=== PATIENT | male | born 1975 | race Caucasian/White ===

== ENCOUNTER → 2018-04-12 | Outpatient (CLI) | payer BC | END | disposition home or self-care (01) | LOC: PTMAIN 08:38 | PROVIDERS: ATTEND Otolaryngology | DX: K21.9 Gastro-esophageal reflux disease without esophagitis (principal); Z53.9 Procedure and treatment not carried out, unspecified reason ==

== ENCOUNTER → 2019-11-25 | Outpatient (CLI) | payer BC ==
--- NOTE | 2019-11-25 12:00 | EST ---
EXERCISE STRESS DATE OF SERVICE: 11/25/2019 AGE: 44 SEX: M HT: 75" WT: 230 lbs PROTOCOL: Stress Echo. STAGE: 3 DURATION OF EXERCISE: 8 minutes HEART RATE REST: 87 BLOOD PRESSURE REST: 129/61 MAXIMUM HEART RATE ACHIEVED: 154 MAXIMUM BLOOD PRESSURE: 204/85 85% MPHR: 149 100% MPHR: 175 METS: 9.7 INDICATIONS: Chest pain. CLINICAL INFORMATION: Evaluate for CAD in a patient with diabetes and hypertension. RESULTS: Baseline EKG revealed normal sinus rhythm without significant ST changes. Patient walked for 8 minutes on a standard Killian protocol. Achieved a maximal heart rate of 154 beats per minute which is more than 85% of predicted maximal. He developed fatigue and shortness of breath but did not have any angina or any arrhythmia. EKG did not reveal any ST-segment changes to indicate ischemia. By EKG criteria, this is a negative stress test with fair exercise capacity. There was no arrhythmia or angina. Baseline echo images revealed normal wall motion and wall thickening of all segments. An echo contrast was used to optimize the image quality. At peak exercise with Lumason injection, the images were optimized. There was good augmentation of left and wall motion wall thickening of all segments suggesting that there is no evidence of stress-induced ischemia on this study. FINAL IMPRESSION: 1. By EKG criteria, this is a negative stress test with fair exercise capacity. 2. Normal stress echocardiogram without evidence of ischemia. MMODL / IJN: [id number] /
== END | disposition home or self-care (01) ==
LOC: RADNMMAIN 08:52
PROVIDERS: ATTEND Nurse Practitioner Family
DX: R07.9 Chest pain, unspecified (principal)
CPT/HCPCS: 93351; Q9950

== ENCOUNTER → 2019-12-12 | Outpatient (CLI) | payer BC ==
--- NOTE | 2019-12-13 14:48 | US ---
EXAMINATION TYPE: US scrotum with doppler. Grayscale and color Doppler Duplex imaging performed of t he scrotum. DATE OF EXAM: 12/12/2019 COMPARISON: NONE CLINICAL HISTORY: N50.819 Testicular pain. Left testicular swelling EXAM MEASUREMENTS: TESTICLES: Right Testicle: 3.9 x 2.3 x 2.8 cm Left Testicle: 3.8 x 2.2 x 2.6 cm EPIDIDYMIS HEAD: Right Epididymis: 1.1 x 1.1 x 1.4 cm Left Epididymis: 1.4 x 1.2 x 1.4 cm Doppler performed to assess for testicular vascularity; good bilateral color flow and waveforms are s een. There is no evidence of testicular torsion. Presence of hydroceles: no Presence of varicoceles: prominent vessel on left side that increased with valsalva IMPRESSION: 1. Normal testicular ultrasound 2. Left-sided varicoceles.
== END | disposition home or self-care (01) ==
LOC: RADUSMAIN 17:34
PROVIDERS: ATTEND Student in an Organized Health Care Education/Training Program
DX: I86.1 Scrotal varices (principal)
CPT/HCPCS: 76870; 93975

== ENCOUNTER 2020-01-08 09:35 | Emergency (ER) | payer BC ==
[2020-01-08 09:40] VITALS: RESP 18; TEMP 98.2
[2020-01-08] MEDS ORDERED: FAMOTIDINE 20 MG/2 ML VIAL IV STA (09:54)
[2020-01-08] MEDS ORDERED: ONDANSETRON 4 MG/2 ML VIAL IVP STA (09:54)
--- NOTE | 2020-01-08 10:04 | ED ---
General Adult HPI - General Chief complaint: Nausea/Vomiting/Diarrhea Stated complaint: Vomiting Time Seen by Provider: 01/08/20 09:46 Source: patient, RN notes reviewed Mode of arrival: ambulatory Limitations: no limitations - History of Present Illness Initial comments: Patient is a pleasant 44-year-old male presenting to the emergency department with nausea and vomiting. Onset of symptoms was last night. Patient estimates that he vomited over 8 times. Patient still has some nausea. This morning patient did develop some tingling on the right side of his chest. Patient states it is mild and is near resolved at this time. No history of similar symptoms previously. Patient states there may be some mild associated shortness of breath. No diaphoresis. - Related Data Home Medications Medication Instructions Recorded Confirmed Glimepiride [Amaryl] 2 mg PO AC-BID 01/08/20 01/08/20 Lisinopril [Zestril] 20 mg PO DAILY 01/08/20 01/08/20 Pioglitazone [Actos] 30 mg PO DAILY 01/08/20 01/08/20 chlordiazePOXIDE/CLIDINIUM BR 1 cap PO AC-TID 01/08/20 01/08/20 [Librax] metFORMIN HCL 1,000 mg PO AC-BID 01/08/20 01/08/20 Allergies Allergy/AdvReac Type Severity Reaction Status Date / Time No Known Allergies Allergy Verified 01/08/20 09:37 Review of Systems ROS Statement: Those systems with pertinent positive or pertinent negative responses have been documented in the HPI. ROS Other: All systems not noted in ROS Statement are negative. Constitutional: Denies: fever Eyes: Denies: eye pain ENT: Denies: ear pain Respiratory: Reports: as per HPI Cardiovascular: Reports: as per HPI, chest pain Endocrine: Denies: fatigue Gastrointestinal: Reports: nausea, vomiting. Denies: diarrhea, constipation Genitourinary: Denies: dysuria Musculoskeletal: Denies: back pain Skin: Denies: rash Neurological: Denies: weakness Past Medical History Past Medical History: Diabetes Mellitus, Hypertension History of Any Multi-Drug Resistant Organisms: None Reported Past Surgical History: Hernia Repair, Orthopedic Surgery Additional Past Surgical History / Comment(s): splenectomy Past Psychological History: Anxiety Smoking Status: Current every day smoker Past Alcohol Use History: Occasional Past Drug Use History: Marijuana General Exam Limitations: no limitations General appearance: alert, in no apparent distress Head exam: Present: normocephalic Eye exam: Present: normal appearance, PERRL ENT exam: Present: normal oropharynx Neck exam: Present: normal inspection Respiratory exam: Present: normal lung sounds bilaterally, chest wall tenderness (Mild tenderness right upper chest wall in the area of concern) Cardiovascular Exam: Present: regular rate, normal rhythm Expanded Peripheral pulses: 2+: Radial (R), Radial (L), Posterior Tibialis (R), Posterior Tibialis (L) GI/Abdominal exam: Present: soft. Absent: distended, tenderness Extremities exam: Present: normal inspection. Absent: pedal edema, calf tende rness Neurological exam: Present: alert Psychiatric exam: Present: normal affect, normal mood Skin exam: Present: normal color Course Vital Signs 01/08/20 09:37 Temperature 98.2 F Pulse Rate 77 Respiratory 18 Rate Blood Pressure 137/93 O2 Sat by Pulse 99 Oximetry EKG Findings - EKG Comments: EKG Findings:: Normal sinus rhythm 75. NV 180. QRS 92. QT 412. QTC 460. Normal axis. Poor R-wave progression. No acute ST change. Medical Decision Making - Medical Decision Making Patient reevaluated and resting comfortably in bed, feeling much better. Patient updated on results. He should and requests discharge home. Patient is made aware of limitations of cardiac testing and emergency department. Patient is felt to have extremely low risk for acute cardiac disease with negative emergency department workup. - Lab Data Result diagrams: 01/08/20 09:50 01/08/20 09:50 Lab Results 01/08/20 01/08/20 01/08/20 Range/Units 09:50 09:50 09:50 WBC 10.8 H (3.8-10.6) k/uL RBC 4.89 (4.30-5.90) m/uL Hgb 16.2 (13.0-17.5) gm/dL Hct 48.6 (39.0-53.0) % MCV 99.4 (80.0-100.0) fL MCH 33.0 (25.0-35.0) pg MCHC 33.3 (31.0-37.0) g/dL RDW 13.4 (11.5-15.5) % Plt Count 249 (150-450) k/uL Neutrophils % 60 % Lymphocytes % 29 % Monocytes % 7 % Eosinophils % 1 % Basophils % 0 % Neutrophils # 6.5 (1.3-7.7) k/uL Lymphocytes # 3.2 (1.0-4.8) k/uL Monocytes # 0.7 (0-1.0) k/uL Eosinophils # 0.2 (0-0.7) k/uL Basophils # 0.0 (0-0.2) k/uL PT 10.1 (9.0-12.0) sec INR 1.0 (<1.2) APTT 25.2 (22.0-30.0) sec D-Dimer (<0.60) mg/L FEU Sodium 137 (137-145) mmol/L Potassium 4.0 (3.5-5.1) mmol/L Chloride 101 (98-107) mmol/L Carbon Dioxide 23 (22-30) mmol/L Anion Gap 13 mmol/L BUN 10 (9-20) mg/dL Creatinine 0.60 L (0.66-1.25) mg/dL Est GFR (CKD-EPI)AfAm >90 (>60 ml/min/1.73 sqM) Est GFR (CKD-EPI)NonAf >90 (>60 ml/min/1.73 sqM) Glucose 126 H (74-99) mg/dL Calcium 10.0 (8.4-10.2) mg/dL Magnesium 1.6 (1.6-2.3) mg/dL Total Bilirubin 0.8 (0.2-1.3) mg/dL AST 83 H (17-59) U/L ALT 75 H (4-49) U/L Alkaline Phosphatase 122 (38-126) U/L Troponin I (0.000-0.034) ng/mL Total Protein 8.1 (6.3-8.2) g/dL Albumin 5.1 H (3.5-5.0) g/dL 01/08/20 01/08/20 Range/Units 09:50 09:50 WBC (3.8-10.6) k/uL RBC (4.30-5.90) m/uL Hgb (13.0-17.5) gm/dL Hct (39.0-53.0) % MCV (80.0-100.0) fL MCH (25.0-35.0) pg MCHC (31.0-37.0) g/dL RDW (11.5-15.5) % Plt Count (150-450) k/uL Neutrophils % % Lymphocytes % % Monocytes % % Eosinophils % % Basophils % % Neutrophils # (1.3-7.7) k/uL Lymphocytes # (1.0-4.8) k/uL Monocytes # (0-1.0) k/uL Eosinophils # (0-0.7) k/uL Basophils # (0-0.2) k/uL PT (9.0-12.0) sec INR (<1.2) APTT (22.0-30.0) sec D-Dimer 0.40 (<0.60) mg/L FEU Sodium (137-145) mmol/L Potassium (3.5-5.1) mmol/L Chloride (98-107) mmol/L Carbon Dioxide (22-30) mmol/L Anion Gap mmol/L BUN (9-20) mg/dL Creatinine (0.66-1.25) mg/dL Est GFR (CKD-EPI)AfAm (>60 ml/min/1.73 sqM) Est GFR (CKD-EPI)NonAf (>60 ml/min/1.73 sqM) Glucose (74-99) mg/dL Calcium (8.4-10.2) mg/dL Magnesium (1.6-2.3) mg/dL Total Bilirubin (0.2-1.3) mg/dL AST (17-59) U/L ALT (4-49) U/L Alkaline Phosphatase (38-126) U/L Troponin I <0.012 (0.000-0.034) ng/mL Total Protein (6.3-8.2) g/dL Albumin (3.5-5.0) g/dL Disposition Clinical Impression: Vomiting Disposition: HOME SELF-CARE Condition: Stable Instructions (If sedation given, give patient instructions): Chest Pain (ED), Acute Nausea and Vomiting (ED) Additional Instructions: Please follow-up to primary care physician in the next day or 2 for recheck. Please also follow-up. Surgeon as directed. Have primary care physician recheck liver enzymes. Return for fever, abdominal pain, chest pain, worsening or changing symptoms or other concerns. Is patient prescribed a controlled substance at d/c from ED?: No Referrals: Terence Knott MD [Primary Care Provider] - 1-2 days Time of Disposition: 11:41
[2020-01-08 10:17] LABS: Basophils % (A) 0 %; Eosinophils # (A) 0.2 k/uL (0-0.7); Eosinophils % (A) 1 %; HCT 48.6 % (39.0-53.0); HGB 16.2 gm/dL (13.0-17.5); Lymphocytes # (A) 3.2 k/uL (1.0-4.8); Lymphocytes % (A) 29 %; MCHC 33.3 g/dL (31.0-37.0); MCV 99.4 fL (80.0-100.0); Mean Platelet Volume 10.5; Monocytes # (A) 0.7 k/uL (0-1.0); Monocytes % (A) 7 %; Neutrophils # (A) 6.5 k/uL (1.3-7.7); Neutrophils % (A) 60 %; Platelet Count 249 k/uL (150-450); RBC 4.89 m/uL (4.30-5.90); RDW 13.4 % (11.5-15.5); WBC 10.8 k/uL (3.8-10.6)
[2020-01-08 10:25] LABS: Partial Thromboplastin Time 25.2 sec (22.0-30.0); Prothrombin Time 10.1 sec (9.0-12.0)
--- NOTE | 2020-01-08 10:29 | XR ---
EXAMINATION TYPE: XR chest 2V DATE OF EXAM: 01/08/2020 COMPARISON: NONE HISTORY: Right-sided chest pain. TECHNIQUE: Frontal and lateral views of the chest are obtained. FINDINGS: There is some chronic left basilar linear scarring and/or atelectasis without suspicious f ocal air space opacity, pleural effusion, or pneumothorax seen. The cardiac silhouette size is withi n normal limits. Multilevel spurring in the lower thoracic spine is present. Surgical clips epigastri c region are present. Overlying EKG leads are present. IMPRESSION: No acute cardiopulmonary process.
[2020-01-08 10:32] LABS: ALT 75 U/L (4-49); AST 83 U/L (17-59); African American GFR (CKD) >90 (>60 ml/min/1.73 sqM); Albumin 5.1 g/dL (3.5-5.0); Alkaline Phosphatase 122 U/L (38-126); Anion Gap 13 mmol/L; Blood Urea Nitrogen 10 mg/dL (9-20); Carbon Dioxide 23 mmol/L (22-30); Chloride 101 mmol/L (98-107); Glucose 126 mg/dL (74-99); Magnesium 1.6 mg/dL (1.6-2.3); Non-African American GFR(CKD) >90 (>60 ml/min/1.73 sqM); Sodium 137 mmol/L (137-145); Total Bilirubin 0.8 mg/dL (0.2-1.3); Total Protein 8.1 g/dL (6.3-8.2)
[2020-01-08 12:06] VITALS: BP 145/88; PULSE 70
== END 2020-01-08 12:06 | disposition home or self-care (01) ==
LOC: EC 09:35
DX: R11.2 Nausea with vomiting, unspecified (principal); R20.2 Paresthesia of skin; E11.9 Type 2 diabetes mellitus without complications; F41.9 Anxiety disorder, unspecified; I10 Essential (primary) hypertension; F17.200 Nicotine dependence, unspecified, uncomplicated; Z79.84 Long term (current) use of oral hypoglycemic drugs; Z79.899 Other long term (current) drug therapy
CPT/HCPCS: 36415; 93005; 85379; 80053; 83735; 84484; 85025; 85610; 85730; 71046; 99284; 96374; 96375; J2405

== ENCOUNTER → 2020-09-14 | Outpatient (CLI) | payer BC ==
[2020-09-14 13:50] VITALS: BP 161/107; PULSE 104; RESP 16; TEMP 98.2
--- NOTE | 2020-09-14 14:10 | P.PAINCN ---
History of Present Illness - Reason for Consult Consult date: 09/14/20 - History of Present Illness This is initial consultation visit for this 45 years old male with a chronic history of severe neck pain with radiation to the right upper extremity associated with numbness and tingling sensation, up to the fingertips, and he feels some weakness in his right upper extremity, denies any initiating event and the symptoms interfere with his quality of life, and the symptoms started almost a year ago, he denies any fever or night sweats. Denies any change in the bowel movement or urination he never tried any physical therapy, and he report that the neck pain increases with any neck movement Past Medical History Past Medical History: Diabetes Mellitus, Hypertension History of Any Multi-Drug Resistant Organisms: None Reported Past Surgical History: Hernia Repair, Orthopedic Surgery Additional Past Surgical History / Comment(s): splenectomy. left knee scoped x 3. eye surgery at 5 yrs old. 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 Past Psychological History: Anxiety Smoking Status: Current every day smoker Past Alcohol Use History: Occasional Past Drug Use History: Marijuana Medications and Allergies Home Medications Medication Instructions Recorded Confirmed Type lisinopriL [Zestril] 20 mg PO DAILY 01/08/20 09/14/20 History metFORMIN HCL 1,000 mg PO AC-BID 01/08/20 09/14/20 History Allergies Allergy/AdvReac Type Severity Reaction Status Date / Time No Known Allergies Allergy Verified 09/14/20 13:37 Physical Exam Vitals: Vital Signs Temp Pulse Resp BP Pulse Ox 09/14/20 13:38 98.2 F 104 H 16 161/107 96 Intake and Output 09/13/20 09/14/20 09/14/20 22:59 06:59 14:59 Other: Weight 108.862 kg Physical Examinations : -Constitutiona : Cooperative , not in acute distress . -HEENT : nech : supple , no Lymphadenopathy , normal thyroid size . : eyes : no ptosis , no icterus, no photophobia . - neurologic : Cranial nerve II to XII intact , no focal neurological deffecit . -psychatric : alert , oriented X 3 , appropriate affect , intact judgment and insight . -Lymphatic : no Lymphadenopathy . - musculoskeltal : Cervical Spine motor stregnth in the deltoid and biceps, normal right side , normal Left side motor stregnth biceps and the wrist extensors normal right side ,normal left side . motor stregnth in the triceps muscle . normal Right side , normal Left side deep tendon reflexes normal at the biceps , normal at Brachioradialis , normal at triceps. cervical facet loading test= Positive Bilaterally Spurling test= positive bilaterally. Neck distraction test= positive bilaterally. Jatin sign= positive bilaterally. Multiple trigger point identified in the right side cervical paraspinal muscles Lumber spine moter stegnth lower extremities ,thigh and legs 5/5 Right side , 5/5 Left side Results Comments: MRI of the cervical spine multilevel cervical bulging disc , and cervical spinal stenosis and facet joint hypertrophy at C3 4, C4 5 , C5 6 ,C6 7 Assessment and Plan Plan: Assessment and plan=1-cervical radiculopathy. 2-cervical spinal stenosis. 3-cervical degenerative disc disease. 4-myofascial pain syndrome and cervical area. Patient could benefit from cervical epidural steroid injection at C7-T1 right paramedian approach, and also at the same time we could do trigger point injection right side cervical paraspinal muscles. Patient could benefit from mobic 15 mg by mouth daily She could benefit from Flexeril 10 mg by mouth twice a day Time with Patient: Greater than 30 PQRS Measure Charge Sheet Measure #130: Documentation of Current Meds in Medical Chart: Patient's medications documented in chart Measure #226: Tobacco Use: Screen & Cessation Intervention: Pt screened for tobacco use AND intervention given Measure #111: Pneumonia Vaccination: Pneumococcal vaccine NOT administered or previously given Measure #47: Advance Care Plan: Advance care planning discussed & documented, pt chose/unable to give Measure #412: Opioid Treatment Agreement: No documentation of signed opioid treatment agreement Measure #408: Opioid Therapy Follow-up Evaluation: Patient had NO f/u eval minimum every 3 months during opioid therapy Measure #317: Preventitive Care & Scrn High Bld Press & F/U: Pre-hypertensive or hypertensive BP documented, pt will f/u with PCP Measure #128: Body Mass Index (BMI) Screening & Follow-up: BMI documented ABOVE normal parameters - f/u documented Measure #131: Pain Assessment & Follow-up: Pain positive & plan documented, Follow-up scheduled Measure #431: Unhealthy Alcohol Use Preventative Care & Scrn: Patient not identified as an unhealthy alcohol user PQRS Narrative: Smoking Status Current every day smoker Blood Pressure 161/107 Pain Intensity [Right 4 Posterior Neck] Scale Used Numeric (1 - 10) Hx Alcohol Use (MH) Yes: SOCIAL Home Medications: Ambulatory Orders lisinopriL [Zestril] 20 mg PO DAILY 01/08/20 metFORMIN HCL 1,000 mg PO AC-BID 01/08/20
== END | disposition home or self-care (01) ==
LOC: PNWHC3 13:24
PROVIDERS: ATTEND Specialist
DX: M48.02 Spinal stenosis, cervical region (principal); M79.18 Myalgia, other site; M50.10 Cervical disc disorder with radiculopathy, unspecified cervical region; Z79.84 Long term (current) use of oral hypoglycemic drugs; Z79.899 Other long term (current) drug therapy; F17.200 Nicotine dependence, unspecified, uncomplicated
CPT/HCPCS: 99211

== ENCOUNTER → 2020-10-01 | Day surgery (SDC) | payer BC ==
[2020-09-29 15:54] VITALS: BMI 29.9
[~2020-10-01] MED LIST: DEXAMETHASONE SOD PHOSPHATE 10 MG/ML 1 ML VIAL ONE; INSULIN ASPART (NovoLOG) 100 UNIT/ML VIAL SQ ONE; IOPAMIDOL M200 10 ML VIAL ONE; IV FLUID CONTINUATION 700 ML IV ONE; LACTATED RINGERS 1,000 ML IV SCH; MIDAZOLAM 2 MG/2 ML VIAL ONE; ROPIVACAINE 5MG/ML 20ML VIAL ONE; fentaNYL (PF) 50 MCG/ML 2 ML AMP ONE
[2020-10-01 12:25] VITALS: RESP 16; TEMP 98.1
[2020-10-01 12:31] LABS: Glucose,Whole Blood 247 mg/dL (75-99)
--- NOTE | 2020-10-01 13:13 | FL ---
EXAMINATION TYPE: FL guided pain mgmt statistic DATE OF EXAM: 10/01/2020 CLINICAL HISTORY: Neck pain. TECHNIQUE: Fluoroscopy. COMPARISON: None. FINDINGS: Fluoroscopic guidance was provided during pain relief procedure performed by Dr. Patterson . A total of 9 seconds of fluoroscopic time was utilized during the procedure and 1 spot images are acquired. Single image acquired shows needle localization at roughly C6 level with contrast injectio n. IMPRESSION: As Above.
[2020-10-01 13:26] VITALS: BP 132/86; PULSE 79
== END ==
LOC: ORPAIN 11:48
PROVIDERS: ATTEND Specialist
DX: M47.22 Other spondylosis with radiculopathy, cervical region (principal); M50.10 Cervical disc disorder with radiculopathy, unspecified cervical region; M79.18 Myalgia, other site; E11.9 Type 2 diabetes mellitus without complications
CPT/HCPCS: 20552; 62321; J2250; J1100; J3010; Q9966; J2795

== ENCOUNTER 2020-10-14 06:20 | Day surgery (SDC) | payer BC ==
--- NOTE | 2020-10-01 13:07 | P.PCN ---
Date of Procedure: 10/01/20 Procedure(s) Performed: . PROCEDURE 1. Cervical epidural steroid injection under fluoroscopic guidance, C7-T1 (fluoroscopy images available in the radiology department ) 2. Cervical epidurogram. 3. Trigger point injection right side cervical paraspinal muscles junction. Total of 2 trigger point injected right side cervical paraspinal muscles PREOPERATIVE DIAGNOSIS: 1- Cervical Degenerative Disc Diseases 2- Cervical radiculopathy., 3-cervical spondylosis with cervical Facet arthropathy without myelopathy 4-myofascial pain syndrome and cervical area POSTOPERATIVE DIAGNOSIS: : 1- Cervical Degenerative Disc Diseases , 2- Cervical radiculopathy. 3-,cervical spondylosis with cervical Facet arthropathy without myelopathy. 4-myofascial pain syndrome and cervical area ANESTHESIA: Local anesthesia with lidocaine 1 % , and moderate sedation, with Versed 2 mg and Fentanyl 100 mcg. EBL 0 PROCEDURE INDICATION: The patient with neck pain and radiculitis unresponsive to conservative treatment consents for procedure. PROCEDURE DESCRIPTION / TECHNIQUE: The patient was seen and identified in the preoperative area. Risks, benefits, complications, including but not limited to infections ,bleeding , allergic reactions to the medications ,and not complete pain releife, and alternatives were discussed with the patient, the patient agreed to proceed with the procedure and signed the consent. Patient was taken to the OR and time out was completed. The patient was placed in the prone position on the procedure table. A pillow was placed under the patients chest to increase the cervical interlaminar space. The cervical area was prepped and draped in the usual sterile fashion. Vital signs were closely monitored during the procedure. Conscious sedation was used during the procedure to decrease patients anxiety. Using anterior-posterior fluoroscopy, the C7-T1 interlaminar space was identified and the skin over this site was marked and then infiltrated with 1% lidocaine subcutaneously. Subsequently, a 20-gauge 3-1/2-inch Tuohy epidural needle was inserted and advanced toward the epidural space by means of the ``hanging-drop technique and guided by AP and lateral fluoroscopy. The correct needle position in the epidural space was verified with the injection of 2 mL of the water soluble contrast dye Isovue-200 and observing an excellent epidurogram with the epidural spread of the dye, after negative aspiration for blood and CSF and in the absence of paresthesias. after negative aspiration, mixture containing 10 mg Dexamethasone and 2 ml of preservative-free normal saline injected and a washout of epidurogram was seen. Needle was withdrawn intact, Then after that the trigger point injection done under sterile technique using 25-gauge needle to trigger point identified in the right side cervical paraspinal muscle each one of them injected with bupivacaine 0.5% 2 mL injected at each trigger point after negative aspiration patient tolerated the procedure well without any complications Complications= none. Disposition= patient was placed in supine position and transferred to the recovery room area in stable condition and there was no evidence of upper or lower extremity motor or sensory deficit after the procedure patient was discharged from recovery room after discharge criteria met and home discharge instructions was given by the staff and patient will follow with the pain clinic in 2-4 weeks
[2020-10-09 12:41] VITALS: BMI 29.6
[~2020-10-14 06:20] MED LIST changes: -DEXAMETHASONE SOD PHOSPHATE 10 MG/ML 1 ML VIAL ONE; +DEXAMETHASONE SOD PHOSPHATE 4 MG/ML 1 ML VIAL IV ONE; +HYDROmorphone 0.5 MG/0.5 ML SYRINGE IVP PRN; -INSULIN ASPART (NovoLOG) 100 UNIT/ML VIAL SQ ONE; -IOPAMIDOL M200 10 ML VIAL ONE; -IV FLUID CONTINUATION 700 ML IV ONE; +LIDOCAINE 1% (10MG/ML) FOR IV START INTRADERMA PRN; +MIDAZOLAM 2 MG/2 ML VIAL IV PRN; -MIDAZOLAM 2 MG/2 ML VIAL ONE; -ROPIVACAINE 5MG/ML 20ML VIAL ONE; +ceFAZolin 1,000 MG in SODIUM CHLORIDE 0.9% IRRIGATIO 1,000 ML IRRIGATION PRN; -fentaNYL (PF) 50 MCG/ML 2 ML AMP ONE
[2020-10-14 06:53] LABS: Glucose,Whole Blood 265 mg/dL (75-99)
[2020-10-14] MEDS ORDERED: INSULIN ASPART (NovoLOG) 100 UNIT/ML VIAL SQ ONE ×2 (07:00→10:52)
[2020-10-14] MEDS ORDERED: LACTATED RINGERS 1,000 ML IV ONE ×2 (07:02→08:53)
[2020-10-14] MEDS ORDERED: ONDANSETRON 4 MG/2 ML VIAL IVP ONE (07:02)
[2020-10-14] MEDS ORDERED: LIDOCAINE 1% INJ 10MG/ML (20 ML MDV) ONE (07:23)
[2020-10-14] MEDS ORDERED: GLYCOPYRROLATE 0.2 MG/ML 2 ML VIAL ONE (07:23)
[2020-10-14] MEDS ORDERED: DEXAMETHASONE SOD PHOSPHATE 10 MG/ML 1 ML VIAL ONE (07:23)
[2020-10-14] MEDS ORDERED: MIDAZOLAM 2 MG/2 ML VIAL ONE (07:23)
[2020-10-14] MEDS ORDERED: fentaNYL (PF) 50 MCG/ML 2 ML AMP ONE (07:23)
[2020-10-14] MEDS ORDERED: PROPOFOL 10 MG/ML 20 ML VIAL IV ONE (07:23)
[2020-10-14] MEDS ORDERED: PHENYLEPHRINE 10 MG/ML VIAL ONE (07:23)
[2020-10-14] MEDS ORDERED: ROCURONIUM 10 MG/ML (10 ML VIAL) IV ONE (07:23)
[2020-10-14] MEDS ORDERED: SUCCINYLCHOLINE CHLORIDE VIAL 200 MG/10 ML VIAL IV ONE (07:23)
[2020-10-14] MEDS ORDERED: NEOSTIGMINE 1 MG/ML 10 ML VIAL ONE (07:23)
[2020-10-14] MEDS ORDERED: THROMBIN (BOVINE) 5,000 UNIT VIAL TOPICAL ONE (08:50)
[2020-10-14] MEDS ORDERED: GELATIN SPONGE,ABSORB (LARGE) 1 EACH SPONGE MISCELLANE ONE (08:50)
[2020-10-14] MEDS ORDERED: LIDOCAINE 1%-EPI 1:100,000 20 ML VIAL SQ ONE (08:51)
--- NOTE | 2020-10-14 08:55 | XR ---
Cervical spine HISTORY: Needle placement Single lateral view of the cervical spine Endotracheal tube is in place. There are overlying leads. There is a needle present at the disc space of C6-7. Multilevel spondylosis, loss of disc height present consistent with degenerative disc disea se. Entire cervical spine is not visualized. IMPRESSION: Orthopedic localization.
[2020-10-14] MEDS ORDERED: HYDROmorphone 0.5 MG/0.5 ML SYRINGE IVP PRN (10:20)
[2020-10-14] MEDS ORDERED: HYDROcodone/APAP 5-325MG 1 EACH TAB PO PRN (10:20)
[2020-10-14] MEDS ORDERED: ACETAMINOPHEN TAB 325 MG TAB PO PRN (10:20)
[2020-10-14] MEDS ORDERED: HYDROmorphone 1 MG/ML 1 ML SYRINGE IVP PRN (10:20)
[2020-10-14] MEDS ORDERED: BENZOCAINE/MENTHOL LOZENG 1 EACH LOZENGE MUCOUS MEM PRN (10:20)
[2020-10-14] MEDS ORDERED: MAGNESIUM HYDROXIDE 2,400 MG/10 ML CUP PO PRN (10:20)
[2020-10-14] MEDS ORDERED: HYDROcodone/APAP 7.5-325MG 1 EACH TAB PO PRN (10:21)
[2020-10-14] MEDS ORDERED: CYCLOBENZAPRINE 10 MG TAB PO PRN (10:21)
[2020-10-14] MEDS ORDERED: SODIUM CHLORIDE 0.9% 1,000 ML IV SCH (10:30)
--- NOTE | 2020-10-14 10:30 | P.OP ---
Date of Procedure: 10/14/20 Preoperative Diagnosis: Cervical myelopathy, cervical myelomalacia, cervical stenosis C4 5 C5 6 C6 7, degenerative disc disease, herniated nucleus pulposis C4 5 C5 6 C6 7, upper extremity weakness, upper extremity radiculopathy Postoperative Diagnosis: Cervical myelopathy, cervical myelomalacia, cervical stenosis C4 5 C5 6 C6 7, degenerative disc disease, herniated nucleus pulposis C4 5 C5 6 C6 7, upper extremity weakness, upper extremity radiculopathy Anesthesia: GETA Pathology: none sent Condition: stable Disposition: PACU Description of Procedure: BRIEF OPERATIVE NOTE Preoperative Diagnosis:Cervical myelopathy, cervical myelomalacia, cervical stenosis C4 5 C5 6 C6 7, degenerative disc disease, herniated nucleus pulposis C4 5 C5 6 C6 7, upper extremity weakness, upper extremity radiculopathy Postoperative Diagnosis:Cervical myelopathy, cervical myelomalacia, cervical stenosis C4 5 C5 6 C6 7, degenerative disc disease, herniated nucleus pulposis C4 5 C5 6 C6 7, upper extremity weakness, upper extremity radiculopathy Procedure: Anterior cervical decompression with discectomy and fusion C4 5 C5 6 C6 7 Placement of interbody graft C4 5 C5 6 C6 7 Application of anterior cervical plate C4 5 6 and 7 Removal of large anterior and posterior cervical osteophytes C4 5 C5 6 C6 7 Surgeon: Dr. Mullins Kidney Puller: Ramesh STERLING, who is present throughout the entire the case persistence during positioning, dissection, exposure, visualization, and all crucial elements of the case as well as closure. Anesthesia: General anesthesia Estimated blood loss: Approximately 50 mL Complications: None apparent Components implanted: K2M [place] anterior cervical plate system size 60 with 8 screws and Vikos interbody allograft bone graft 1 mL bone putty Disposition: To recovery room in good stable condition. OPERATIVE INDICATIONS The patient has had long-standing issues in their neck and upper extremities. Hector castaneda is having worsening symptoms at his neck and his upper extremities. He is having some issues with radicular symptoms and weakness. Imaging showed that he had evidence of cervical myelomalacia and he was exhibiting signs of cervical myelopathy. He had been through some treatment without any improvement. The patient has been through conservative treatment. He had evidence of severe stenosis and changes within his spinal cord. We discussed various treatment options including surgery, and the patient wishes to proceed with surgery We discussed the risk, patient's alternatives and benefits of surgery including but not limited to, risk of bleeding risk of infection, risk of need for further surgery, risk of decreased, loss of motion, muscle function, malunion nonunion, hardware failure, nerve damage, paralysis, heart attack, and . OPERATIVE SUMMARY After discussing all the risks, patient alternatives and benefits at length, the patient elected to proceed with surgical intervention, signed informed consent, and presented for their procedure. The patient was seen and examined in the preoperative holding area and the surgical site was marked. The patient was given antibiotics and brought to the operating room. The patient was positioned on the operating room table in a supine position being careful to pad any bony prominences and pressure points. The patient was sedated and intubated by anesthesia in standard fashion. Once the airway and C- spine were stabilized the patient's arms were padded and tucked at her side, with her shoulders gently taped. The head was placed in a donut pad with the neck in good neutral alignment and position. We were careful to maintain the patient's cervical spine and good neutral alignment and position throughout. The patient was prepped and draped in a normal standard fashion. An appropriate timeout and keystone protocol performed. We were able to proceed with the surgery. The local wound area was infiltrated with local anesthetic. An incision was made transversely approximately 2-1/2 cm over the appropriate levels at C6. Dissection was taken down subcutaneously to the level of the platysma which was split in line with its fibers. Dissection was taken with a carotid approach, with the trachea and esophagus medial and the carotid sheath laterally. We dissected down to the anterior surface of the vertebral bodies. Intraoperative x-ray was taken which showed a marker at the appropriate level at C6 7. With the appropriate level positively confirmed, we were able to proceed with discectomy at the appropriate levels. There were very large anterior cervical osteophytes particularly at C5 6 and I had removed large anterior cervical osteophytes to gain access around the disc spaces appropriately. All of the operative levels were exposed appropriately. The patient had all their twitches back, and there was no evidence of recurrent laryngeal issue. The wound was copiously irrigated and suctioned dry as had been done periodically throughout the case. At the appropriate level/levels, starting at C6 7 and then removing the C5 6 and then C4 5, I established an annulotomy with an 11 blade scalpel. A discectomy was performed with a combination of pituitary rongeurs, curettes, a high-speed bur, and Kerrison rongeurs. At each level there were large posterior osteophytes as well. Took extra meticulous care to gently remove these posterior osteophytes and gave good central and bilateral foraminal decompression. The posterior longitudinal ligament was taken down as were any posterior osteophytes. This gave good central and bilateral foraminal decompression. There is no evidence of any dural tear or leak. The endplates were prepared with a high-speed bur. With the endplates in good parallel position, I was able to size for the appropriate size interbody graft. The wound was irrigated and suctioned dry the graft was prepared and malleted into position. It had good alignment and position with the anterior surface flush with the anterior surface of the vertebral bodies. This was done similarly the appropriate levels from C4 to C7. With the grafts intact, I was able to measure and contour and appropriate sized plate. The plate was positioned at the midline over the appropriate levels at C4 5 6 and 7. Screw holes were established with a hand drill and drill guide. Screws were placed in good alignment and position with excellent bony purchase. They were seated under the locking device. The construct was checked and found to be stable. Intraoperative x-ray was taken which showed good alignment and position of the implants at the appropriate levels. There was no evidence of any dural tear or leak. Good hemostasis was maintained. The wound was copiously irrigated and suctioned dry as had been done periodically throughout the case. The platysma was closed with absorbable suture. The subcutaneous tissue was closed. The subcuticular tissue was closed with absorbable suture. The wound was cleaned and dried and dressed appropriately. A soft cervical collar was placed appropriately. The patient was woken up by anesthesia, extubated, transferred back gently to their hospital bed and brought to the recovery room in good stable condition. The patient will be admitted to the hospital for appropriate postoperative care, medical management and monitoring. We will continue to follow them closely about the postoperative course.
[2020-10-14 10:50] LABS: Glucose,Whole Blood 301 mg/dL (75-99)
[2020-10-14 11:19] VITALS: RESP 16
--- NOTE | 2020-10-14 11:24 | XR ---
Cervical spine HISTORY: Anterior cervical fusion and discectomy Exam correlated to prior exam same dated earlier time Patient is status post anterior cervical fusion and discectomy at C4-C7, C7 level is not well seen. I ntervertebral spacing blocks are present. There is anatomic alignment. IMPRESSION: Orthopedic follow-up.
[2020-10-14 14:28] VITALS: BP 114/73; PULSE 80; TEMP 98
[2020-10-14] MEDS ORDERED: metFORMIN 500 MG TAB PO SCH (17:30)
[2020-10-15] MEDS ORDERED: SENNOSIDES-DOCUSATE SODIUM 1 EACH TAB PO SCH ×2 (09:00)
[2020-10-15] MEDS ORDERED: ATORVASTATIN 20 MG TAB PO SCH (09:00)
[2020-10-15] MEDS ORDERED: lisinopriL 20 MG TAB PO SCH (09:00)
[2020-10-15] MEDS ORDERED: Semaglutide [Rybelsus] PO SCH (09:00)
== END 2020-10-14 16:13 | disposition home or self-care (01) ==
LOC: OR 06:20 → 4SSUR 10:30 → OR 16:13
PROVIDERS: ATTEND Orthopaedic Surgery Orthopaedic Surgery of the Spine
DX: M50.021 Cervical disc disorder at C4-C5 level with myelopathy (principal); M50.121 Cervical disc disorder at C4-C5 level with radiculopathy; M47.22 Other spondylosis with radiculopathy, cervical region; M48.02 Spinal stenosis, cervical region; G95.89 Other specified diseases of spinal cord; M25.78 Osteophyte, vertebrae; I10 Essential (primary) hypertension; E78.2 Mixed hyperlipidemia; E11.9 Type 2 diabetes mellitus without complications; F17.210 Nicotine dependence, cigarettes, uncomplicated; Z79.84 Long term (current) use of oral hypoglycemic drugs; Z79.899 Other long term (current) drug therapy; Z79.1 Long term (current) use of non-steroidal anti-inflammatories (NSAID); Z98.890 Other specified postprocedural states; Z83.3 Family history of diabetes mellitus; Z82.49 Family history of ischemic heart disease and other diseases of the circulatory system; K21.9 Gastro-esophageal reflux disease without esophagitis
CPT/HCPCS: 72020; 72050; 22551; 22552 ×2; 22853 ×3; 22846; C1713 ×2; C1762 ×2; J2250; J0330; J1100; J2370; J2710; J0690 ×2; J2405; J2001; J3010; J2704

== ENCOUNTER 2021-05-02 19:34 | Emergency (ER) | payer BC ==
[2021-05-02] MEDS ORDERED: SODIUM CHLORIDE 0.9% 1,000 ML IV STA (19:49)
[2021-05-02 20:35] LABS: Basophils # (A) 0.1 k/uL (0-0.2); Basophils % (A) 1 %; Eosinophils # (A) 0.4 k/uL (0-0.7); Eosinophils % (A) 3 %; HCT 45.2 % (39.0-53.0); HGB 15.2 gm/dL (13.0-17.5); Lymphocytes # (A) 4.8 k/uL (1.0-4.8); Lymphocytes % (A) 35 %; MCHC 33.6 g/dL (31.0-37.0); MCV 95.2 fL (80.0-100.0); Mean Platelet Volume 9.8; Monocytes % (A) 8 %; Neutrophils # (A) 6.8 k/uL (1.3-7.7); Neutrophils % (A) 51 %; Platelet Count 203 k/uL (150-450); RBC 4.75 m/uL (4.30-5.90); RDW 13.1 % (11.5-15.5); WBC 13.5 k/uL (3.8-10.6)
[2021-05-02 20:43] LABS: Partial Thromboplastin Time 23.2 sec (22.0-30.0); Prothrombin Time 10.2 sec (9.0-12.0)
[2021-05-02 20:47] LABS: ALT 61 U/L (4-49); AST 72 U/L (17-59); African American GFR (CKD) >90 (>60 ml/min/1.73 sqM); Albumin 4.4 g/dL (3.5-5.0); Alkaline Phosphatase 204 U/L (38-126); Anion Gap 11 mmol/L; Blood Urea Nitrogen 14 mg/dL (9-20); Calcium 10.2 mg/dL (8.4-10.2); Carbon Dioxide 28 mmol/L (22-30); Chloride 98 mmol/L (98-107); Glucose 314 mg/dL (74-99); Magnesium 1.8 mg/dL (1.6-2.3); Non-African American GFR(CKD) >90 (>60 ml/min/1.73 sqM); Potassium 4.3 mmol/L (3.5-5.1); Sodium 137 mmol/L (137-145); Total Bilirubin 0.3 mg/dL (0.2-1.3); Total Protein 6.9 g/dL (6.3-8.2)
--- NOTE | 2021-05-02 20:48 | XR ---
EXAMINATION TYPE: XR chest 2V DATE OF EXAM: 05/02/2021 COMPARISON: 01/08/2020. HISTORY: Difficulty breathing. TECHNIQUE: Frontal and lateral views of the chest are obtained. FINDINGS: There is no focal air space opacity, pleural effusion, or pneumothorax seen. 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 Left upper quadrant post surgical changes noted. Th e cardiac silhouette size is within normal limits. The osseous structures are without acute abnorma lity. Interval cervical spine fusion. IMPRESSION: No acute cardiopulmonary process.
--- NOTE | 2021-05-02 20:55 | ED ---
SOB HPI - General Chief Complaint: Shortness of Breath Stated Complaint: Pneumonia Time Seen by Provider: 05/02/21 19:44 Source: patient, RN notes reviewed Mode of arrival: ambulatory Limitations: no limitations - History of Present Illness Initial Comments: Patient is a 45-year-old male that presents to emergency department complaining of shortness of breath. He notes he was recently given antibiotics by [facility] for potential pneumonia. He notes that he went back after completing his antibiotics with continuing shortness of breath. They noted that he should come emergency room to get evaluated. Patient was a well-appearing 45-year-old male. He noted that he was skinning his pool when he became acutely short of breath which minimally urgent care. He denied any other symptoms or complaints at this time. He denied any chest pain headache nausea vomiting diarrhea constipation fever fatigue chills. - Related Data Home Medications Medication Instructions Recorded Confirmed lisinopriL [Zestril] 20 mg PO DAILY 01/08/20 10/09/20 metFORMIN HCL 1,000 mg PO AC-BID 01/08/20 10/09/20 Cyclobenzaprine [Flexeril] 10 mg PO BID PRN 09/14/20 10/09/20 Meloxicam [Mobic] 15 mg PO DAILY 09/14/20 10/09/20 HYDROcodone/APAP 7.5-325MG [[place] 1 tab PO Q8H PRN 09/29/20 10/09/20 7.5-325] Rosuvastatin Calcium [Crestor] 10 mg PO DAILY 10/09/20 10/09/20 Semaglutide [Rybelsus] 7 mg PO DAILY 10/09/20 10/09/20 Previous Rx's Medication Instructions Recorded HYDROcodone/APAP 7.5-325MG [[place] 1 tab PO Q4H PRN 3 Days #18 tab 10/14/20 7.5-325] Albuterol Sulfate [Proair Hfa] 1 - 2 puff INHALATION Q4HR PRN #1 05/02/21 inhaler Allergies Allergy/AdvReac Type Severity Reaction Status Date / Time No Known Allergies Allergy Verified 05/02/21 19:40 Review of Systems ROS Statement: Those systems with pertinent positive or pertinent negative responses have been documented in the HPI. ROS Other: All systems not noted in ROS Statement are negative. Past Medical History Past Medical History: Diabetes Mellitus, Hypertension, Musculoskeletal Disorder Additional Past Medical History / Comment(s): Neck pain R/T bulging discs, Rt arm NT History of Any Multi-Drug Resistant Organisms: None Reported Past Surgical History: Hernia Repair, Orthopedic Surgery Additional Past Surgical History / Comment(s): splenectomy. left knee scoped x 3. eye surgery at 5 yrs old. 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 Absent: scleral icterus, conjunctival injection, periorbital swelling Neck exam: Present: normal inspection Respiratory exam: Present: normal lung sounds bilaterally. Absent: respiratory distress, wheezes, rales, rhonchi, stridor Cardiovascular Exam: Present: regular rate, normal rhythm, normal heart sounds. Absent: systolic murmur, diastolic murmur, rubs, gallop, clicks GI/Abdominal exam: Present: soft, normal bowel sounds. Absent: distended, tenderness, guarding, rebound, rigid Extremities exam: Present: normal inspection, full ROM, normal capillary refill. Absent: tenderness, pedal edema, joint swelling, calf tenderness Neurological exam: Present: alert, oriented X3 Psychiatric exam: Present: normal affect, normal mood Skin exam: Present: warm, dry, intact, normal color. Absent: rash Course Vital Signs 05/02/21 05/02/21 19:36 19:49 Temperature 98.1 F Pulse Rate 78 Respiratory 18 18 Rate Blood Pressure 133/86 O2 Sat by Pulse 94 L Oximetry Medical Decision Making - Medical Decision Making 45-year-old male presenting with shortness of breath after completing anti biotics for pneumonia, sent here by [facility]. Labs, chest x-ray, 1 L normal saline, EKG, compliance monitor ordered. Labs: White blood cells 13.5, rest unremarkable. 10 mg of Decadron ordered. Case discussed with Dr. Shay, patient can discharge home with a inhaler. And follow-up to his primary care. - Lab Data Result diagrams: 05/02/21 20:21 05/02/21 20:21 Lab Results 05/02/21 05/02/21 05/02/21 Range/Units 20:21 20:21 20:21 WBC 13.5 H (3.8-10.6) k/uL RBC 4.75 (4.30-5.90) m/uL Hgb 15.2 (13.0-17.5) gm/dL Hct 45.2 (39.0-53.0) % MCV 95.2 (80.0-100.0) fL MCH 32.0 (25.0-35.0) pg MCHC 33.6 (31.0-37.0) g/dL RDW 13.1 (11.5-15.5) % Plt Count 203 (150-450) k/uL MPV 9.8 Neutrophils % 51 % Lymphocytes % 35 % Monocytes % 8 % Eosinophils % 3 % Basophils % 1 % Neutrophils # 6.8 (1.3-7.7) k/uL Lymphocytes # 4.8 (1.0-4.8) k/uL Monocytes # 1.0 (0-1.0) k/uL Eosinophils # 0.4 (0-0.7) k/uL Basophils # 0.1 (0-0.2) k/uL PT 10.2 (9.0-12.0) sec INR 1.0 (<1.2) APTT 23.2 (22.0-30.0) sec Sodium 137 (137-145) mmol/L Potassium 4.3 (3.5-5.1) mmol/L Chloride 98 (98-107) mmol/L Carbon Dioxide 28 (22-30) mmol/L Anion Gap 11 mmol/L BUN 14 (9-20) mg/dL Creatinine 0.64 L (0.66-1.25) mg/dL Est GFR (CKD-EPI)AfAm >90 (>60 ml/min/1.73 sqM) Est GFR (CKD-EPI)NonAf >90 (>60 ml/min/1.73 sqM) Glucose 314 H (74-99) mg/dL Plasma Lactic Acid Kj (0.7-2.0) mmol/L Calcium 10.2 (8.4-10.2) mg/dL Magnesium 1.8 (1.6-2.3) mg/dL Total Bilirubin 0.3 (0.2-1.3) mg/dL AST 72 H (17-59) U/L ALT 61 H (4-49) U/L Alkaline Phosphatase 204 H (38-126) U/L Troponin I (0.000-0.034) ng/mL Total Protein 6.9 (6.3-8.2) g/dL Albumin 4.4 (3.5-5.0) g/dL Urine Color Urine Appearance (Clear) Urine pH (5.0-8.0) Ur Specific [place] (1.001-1.035) Urine Protein (Negative) Urine Glucose (UA) (Negative) Urine Ketones (Negative) Urine Blood (Negative) Urine Nitrite (Negative) Urine Bilirubin (Negative) Urine Urobilinogen (<2.0) mg/dL Ur Leukocyte Esterase (Negative) 05/02/21 05/02/21 05/02/21 Range/Units 20:21 20:21 20:50 WBC (3.8-10.6) k/uL RBC (4.30-5.90) m/uL Hgb (13.0-17.5) gm/dL Hct (39.0-53.0) % MCV (80.0-100.0) fL MCH (25.0-35.0) pg MCHC (31.0-37.0) g/dL RDW (11.5-15.5) % Plt Count (150-450) k/uL MPV Neutrophils % % Lymphocytes % % Monocytes % % Eosinophils % % Basophils % % Neutrophils # (1.3-7.7) k/uL Lymphocytes # (1.0-4.8) k/uL Monocytes # (0-1.0) k/uL Eosinophils # (0-0.7) k/uL Basophils # (0-0.2) k/uL PT (9.0-12.0) sec INR (<1.2) APTT (22.0-30.0) sec Sodium (137-145) mmol/L Potassium (3.5-5.1) mmol/L Chloride (98-107) mmol/L Carbon Dioxide (22-30) mmol/L Anion Gap mmol/L BUN (9-20) mg/dL Creatinine (0.66-1.25) mg/dL Est GFR (CKD-EPI)AfAm (>60 ml/min/1.73 sqM) Est GFR (CKD-EPI)NonAf (>60 ml/min/1.73 sqM) Glucose (74-99) mg/dL Plasma Lactic Acid Kj 1.7 (0.7-2.0) mmol/L Calcium (8.4-10.2) mg/dL Magnesium (1.6-2.3) mg/dL Total Bilirubin (0.2-1.3) mg/dL AST (17-59) U/L ALT (4-49) U/L Alkaline Phosphatase (38-126) U/L Troponin I <0.012 (0.000-0.034) ng/mL Total Protein (6.3-8.2) g/dL Albumin (3.5-5.0) g/dL Urine Color Yellow Urine Appearance Clear (Clear) Urine pH 5.0 (5.0-8.0) Ur Specific [place] 1.034 (1.001-1.035) Urine Protein Trace H (Negative) Urine Glucose (UA) 4+ H (Negative) Urine Ketones Trace H (Negative) Urine Blood Negative (Negative) Urine Nitrite Negative (Negative) Urine Bilirubin Negative (Negative) Urine Urobilinogen <2.0 (<2.0) mg/dL Ur Leukocyte Esterase Negative (Negative) - EKG Data -: EKG Interpreted by Sc EKG shows normal: sinus rhythm Rate: normal EKG Comments: Ventricular rate 74 bpm, GA interval 174 ms, QRS duration 88 ms QTC 448 ms, PRT axes 44/-18/33. Normal sinus rhythm, normal ECG. EKG appears similar to previous studies. - Radiology Data Radiology results: report reviewed, image reviewed Chest x-ray: No acute cardiopulmonary process. Disposition Clinical Impression: Shortness of breath Disposition: HOME SELF-CARE Condition: Stable Instructions (If sedation given, give patient instructions): Shortness of Breath (ED) Additional Instructions: Please return to the Emergency Department if symptoms worsen or any other concerns. Follow-up with primary care in the next few days. Use inhaler as prescribed. Avoid any strenuous activity or exercise. Is patient prescribed a controlled substance at d/c from ED?: No Referrals: Terence Knott MD [Primary Care Provider] - 1-2 days Time of Disposition: :15
[2021-05-02 21:02] LABS: Appearance,Urine Clear (Clear); Bilirubin,Urine Negative (Negative); Blood,Urine Negative (Negative); Color,Urine Yellow; Glucose,Urine (UA) 4+ (Negative); Ketones,Urine Trace (Negative); Leukocyte Esterase,Urine Negative (Negative); Nitrite,Urine Negative (Negative); Protein,Urine Trace (Negative); Specific Gravity,Urine 1.034 (1.001-1.035); Urobilinogen,Urine <2.0 mg/dL (<2.0)
[2021-05-02] MEDS ORDERED: DEXAMETHASONE SOD PHOSPHATE 10 MG/ML 1 ML VIAL IV STA (21:10)
[2021-05-02 21:55] VITALS: BP 130/78; PULSE 80; RESP 18; TEMP 98.8
== END 2021-05-02 21:55 | disposition home or self-care (01) ==
LOC: EC 19:34
DX: R06.02 Shortness of breath (principal); E11.9 Type 2 diabetes mellitus without complications; I10 Essential (primary) hypertension; F41.9 Anxiety disorder, unspecified; F17.200 Nicotine dependence, unspecified, uncomplicated; Z79.1 Long term (current) use of non-steroidal anti-inflammatories (NSAID); Z79.84 Long term (current) use of oral hypoglycemic drugs; Z79.899 Other long term (current) drug therapy
CPT/HCPCS: 36415; 93005; 80053; 83605; 83735; 84484; 85025; 85610; 85730; 81003; 71046; 99285; 96374; 96361; J1100

== ENCOUNTER 2023-08-03 14:38 | Observation (INO) | payer BC, OTHER ==
[2023-08-03 15:18] LABS: Basophils # (A) 0.1 k/uL (0-0.2); Basophils % (A) 0 %; Eosinophils # (A) 0.2 k/uL (0-0.7); Eosinophils % (A) 2 %; HCT 44.8 % (39.0-53.0); Lymphocytes # (A) 4.4 k/uL (1.0-4.8); Lymphocytes % (A) 35 %; MCHC 33.5 g/dL (31.0-37.0); MCV 95.4 fL (80.0-100.0); Mean Platelet Volume 9.2; Monocytes % (A) 8 %; Neutrophils # (A) 6.6 k/uL (1.3-7.7); Neutrophils % (A) 53 %; Platelet Count 224 k/uL (150-450); WBC 12.6 k/uL (3.8-10.6)
[2023-08-03] MEDS ORDERED: ASPIRIN 81 MG PO STA (15:19)
[2023-08-03] MEDS ORDERED: NITROGLYCERIN OINT 1 INCH/GM PACKET TOPICAL STA (15:19)
--- NOTE | 2023-08-03 15:22 | ED ---
General Adult HPI - General Chief complaint: Chest Pain Stated complaint: chest pain Time Seen by Provider: 08/03/23 15:13 Source: patient, RN notes reviewed Mode of arrival: ambulatory Limitations: no limitations - History of Present Illness Initial comments: Patient is a pleasant 48-year-old male presenting to the emergency Department with chest discomfort. Onset of symptoms was this morning. Patient was at work doing light activity. Symptoms have been waxing and waning. Discomfort is currently rated 2/10. Discomfort feels like dull. Patient does have associated fatigue, nausea, sweating and mild dyspnea. No history of similar symptoms p reviously. No leg pain or leg swelling. - Related Data Home Medications Medication Instructions Recorded Confirmed lisinopriL [Zestril] 20 mg PO DAILY 01/08/20 08/03/23 Rosuvastatin Calcium [Crestor] 10 mg PO DAILY 10/09/20 08/03/23 Dulaglutide [Trulicity] 1.5 mg SQ TH 08/03/23 08/03/23 Ibuprofen [Motrin] 800 mg PO Q8H PRN 08/03/23 08/03/23 Tamsulosin [Flomax] 0.4 mg PO DAILY 08/03/23 08/03/23 busPIRone HCl [Buspar] 5 mg PO BID PRN 08/03/23 08/03/23 Allergies Allergy/AdvReac Type Severity Reaction Status Date / Time No Known Allergies Allergy Verified 08/03/23 15:42 Review of Systems ROS Statement: Those systems with pertinent positive or pertinent negative responses have been documented in the HPI. ROS Other: All systems not noted in ROS Statement are negative. Constitutional: Denies: fever Eyes: Denies: eye pain ENT: Denies: ear pain Respiratory: Reports: as per HPI Cardiovascular: Reports: as per HPI, chest pain Endocrine: Reports: fatigue Gastrointestinal: Reports: nausea Genitourinary: Denies: dysuria Musculoskeletal: Denies: back pain Past Medical History Past Medical History: Diabetes Mellitus, Hypertension, Musculoskeletal Disorder Additional Past Medical History / Comment(s): Neck pain R/T bulging discs, Rt arm NT History of Any Multi-Drug Resistant Organisms: None Reported Past Surgical History: Hernia Repair, Orthopedic Surgery Additional Past Surgical History / Comment(s): splenectomy. left knee scoped x 3. eye surgery at 5 yrs old. 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 Absent: chest wall tenderness Cardiovascular Exam: Present: regular rate, normal rhythm Expanded Peripheral pulses: 2+: Radial (R), Radial (L) GI/Abdominal exam: Present: soft. Absent: tenderness Extremities exam: Present: normal inspection. Absent: pedal edema, calf tenderness Neurological exam: Present: alert Psychiatric exam: Present: normal affect, normal mood Skin exam: Present: normal color Course Vital Signs 08/03/23 08/03/23 14:39 15:41 Temperature 97.7 F Pulse Rate 89 81 Respiratory 16 17 Rate Blood Pressure 160/96 138/87 O2 Sat by Pulse 97 96 Oximetry EKG Findings - EKG Results: EKG: interpreted by ERMD ((X is.), sinus rhythm, normal QRS, normal ST/T Medical Decision Making - Medical Decision Making Was pt. sent in by a medical professional or institution (Dr. PA, PIPE WELDER, urgent care, hospital, or detention...) When possible be specific @ -No Did you speak to anyone other than the patient for history (EMS, parent, family, police, friend...)? What history was obtained from this source @ -No Did you review nursing and triage notes (agree or disagree)? Why? @ -I reviewed and agree with nursing and triage notes Were old charts reviewed (outside hosp., previous admission, EMS record, old EKG, old radiological studies, urgent care reports/EKG's, detention records)? Report findings @ -No old charts were reviewed Differential Diagnosis (chest pain, altered mental status, abdominal pain women, abdominal pain men, vaginal bleeding, weakness, fever, dyspnea, syncope, headache, dizziness, GI bleed, back pain, seizure, CVA, palpatations, mental health, musculoskeletal)? @ -Differential Chest Pain: Stable Angina, Unstable Angina, STEMI, NSTEMI Aortic Dissection, Pneumothorax, Musculoskeletal, Esophageal Spasm GERD, Cholecystitis, Pancreatitis, Zoster, this is not meant to be an all-inclusive list. EKG interpreted by me (3pts min.). @ -As above X-rays interpreted by me (1pt min.). @ -Chest x-ray shows no acute process CT interpreted by me (1pt min.). @ -None done U/S interpreted by me (1pt. min.). @ -None done What testing was considered but not performed or refused? (CT, X-rays, U/S, labs)? Why? @ -None What meds were considered but not given or refused? Why? @ -None Did you discuss the management of the patient with other professionals (professionals i.e. DrKate, PA, PIPE WELDER, lab, RT, psych nurse, social media marketing specialist, service center coordinator, teacher, aoc airspace control officer, behavioral health case manager)? Give summary @ -Case was discussed with Dr. Whitman, who will admit covering for Dr. Knott Was smoking cessation discussed for >3mins.? @ -No Was critical care preformed (if so, how long)? @ -No Were there social determinants of health that impacted care today? How? (Homelessness, low income, unemployed, alcoholism, drug addiction, transportation, low edu. Level, literacy, decrease access to med. care, care home, rehab)? @ -No Was there de-escalation of care discussed even if they declined (Discuss DNR or withdrawal of care, Hospice)? DNR status @ -No What co-morbidities impacted this encounter? (DM, HTN, Smoking, COPD, CAD, Cancer, CVA, ARF, Chemo, Hep., AIDS, mental health diagnosis, sleep apnea, morbid obesity)? @ -None Was patient admitted / discharged? Hospital course, mention meds given and route, prescriptions, significant lab abnormalities, going to OR and other pertinent info. @ -Patient reevaluated and updated. Patient still has minimal symptoms. Patient will be admitted with cardiac consult. Admission orders written. Undiagnosed new problem with uncertain prognosis? @ -No Drug Therapy requiring intensive monitoring for toxicity (Heparin, Nitro, Insulin, Cardizem)? @ -No Were any procedures done? @ -No Diagnosis/symptom? @ -Chest pain Acute, or Chronic, or Acute on Chronic? @ -Acute Uncomplicated (without systemic symptoms) or Complicated (systemic symptoms)? @ -default Side effects of treatment? @ -No Exacerbation, Progression, or Severe Exacerbation? @ -No Poses a threat to life or bodily function? How? (Chest pain, [place], [place], pneumonia, PE, COPD, DKA, ARF, appy, cholecystitis, CVA, Diverticulitis, Homicidal, Suicidal, threat to staff... and all critical care pts) @ -No - Lab Data Result diagrams: 08/03/23 14:50 08/03/23 14:50 Lab Results 08/03/23 08/03/23 08/03/23 Range/Units 14:50 14:50 14:50 WBC 12.6 H (3.8-10.6) k/uL RBC 4.70 (4.30-5.90) m/uL Hgb 15.0 (13.0-17.5) gm/dL Hct 44.8 (39.0-53.0) % MCV 95.4 (80.0-100.0) fL MCH 32.0 (25.0-35.0) pg MCHC 33.5 (31.0-37.0) g/dL RDW 13.0 (11.5-15.5) % Plt Count 224 (150-450) k/uL MPV 9.2 Neutrophils % 53 % Lymphocytes % 35 % Monocytes % 8 % Eosinophils % 2 % Basophils % 0 % Neutrophils # 6.6 (1.3-7.7) k/uL Lymphocytes # 4.4 (1.0-4.8) k/uL Monocytes # 1.0 (0-1.0) k/uL Eosinophils # 0.2 (0-0.7) k/uL Basophils # 0.1 (0-0.2) k/uL PT 9.7 (9.0-12.0) sec INR 0.9 (<1.2) APTT 23.7 (22.0-30.0) sec Sodium 137 (137-145) mmol/L Potassium 4.4 (3.5-5.1) mmol/L Chloride 100 (98-107) mmol/L Carbon Dioxide 25 (22-30) mmol/L Anion Gap 12 mmol/L BUN 20 (9-20) mg/dL Creatinine 0.72 (0.66-1.25) mg/dL Est GFR (CKD-EPI)AfAm >90 (>60 ml/min/1.73 sqM) Est GFR (CKD-EPI)NonAf >90 (>60 ml/min/1.73 sqM) Glucose 165 H (74-99) mg/dL Calcium 9.9 (8.4-10.2) mg/dL Total Bilirubin 0.4 (0.2-1.3) mg/dL AST 41 (17-59) U/L ALT 39 (4-49) U/L Alkaline Phosphatase 137 H (38-126) U/L Troponin I (0.000-0.034) ng/mL Total Protein 7.5 (6.3-8.2) g/dL Albumin 4.6 (3.5-5.0) g/dL 08/03/23 Range/Units 14:50 WBC (3.8-10.6) k/uL RBC (4.30-5.90) m/uL Hgb (13.0-17.5) gm/dL Hct (39.0-53.0) % MCV (80.0-100.0) fL MCH (25.0-35.0) pg MCHC (31.0-37.0) g/dL RDW (11.5-15.5) % Plt Count (150-450) k/uL MPV Neutrophils % % Lymphocytes % % Monocytes % % Eosinophils % % Basophils % % Neutrophils # (1.3-7.7) k/uL Lymphocytes # (1.0-4.8) k/uL Monocytes # (0-1.0) k/uL Eosinophils # (0-0.7) k/uL Basophils # (0-0.2) k/uL PT (9.0-12.0) sec INR (<1.2) APTT (22.0-30.0) sec Sodium (137-145) mmol/L Potassium (3.5-5.1) mmol/L Chloride (98-107) mmol/L Carbon Dioxide (22-30) mmol/L Anion Gap mmol/L BUN (9-20) mg/dL Creatinine (0.66-1.25) mg/dL Est GFR (CKD-EPI)AfAm (>60 ml/min/1.73 sqM) Est GFR (CKD-EPI)NonAf (>60 ml/min/1.73 sqM) Glucose (74-99) mg/dL Calcium (8.4-10.2) mg/dL Total Bilirubin (0.2-1.3) mg/dL AST (17-59) U/L ALT (4-49) U/L Alkaline Phosphatase (38-126) U/L Troponin I <0.012 (0.000-0.034) ng/mL Total Protein (6.3-8.2) g/dL Albumin (3.5-5.0) g/dL Disposition Clinical Impression: Chest pain Disposition: ADMITTED IP TO THIS HOSP Is patient prescribed a controlled substance at d/c from ED?: No Referrals: Terence Knott MD [Primary Care Provider] - 1-2 days Time of Disposition: 16:05
[2023-08-03 15:24] LABS: INR 0.9 (<1.2); Partial Thromboplastin Time 23.7 sec (22.0-30.0); Prothrombin Time 9.7 sec (9.0-12.0)
--- NOTE | 2023-08-03 15:32 | XR ---
EXAMINATION TYPE: XR chest 2V DATE OF EXAM: 08/03/2023 COMPARISON: 05/02/2021 HISTORY: Chest pain TECHNIQUE: Frontal and lateral views of the chest are obtained. FINDINGS: There is no focal air space opacity. No evidence for pneumothorax. No pleural effusion. The cardiac silhouette size is within normal limits. The osseous structures are grossly intact. IMPRESSION: 1. No acute cardiopulmonary process.
[2023-08-03 15:42] LABS: ALT 39 U/L (4-49); AST 41 U/L (17-59); African American GFR (CKD) >90 (>60 ml/min/1.73 sqM); Albumin 4.6 g/dL (3.5-5.0); Alkaline Phosphatase 137 U/L (38-126); Anion Gap 12 mmol/L; Blood Urea Nitrogen 20 mg/dL (9-20); Calcium 9.9 mg/dL (8.4-10.2); Carbon Dioxide 25 mmol/L (22-30); Chloride 100 mmol/L (98-107); Glucose 165 mg/dL (74-99); Non-African American GFR(CKD) >90 (>60 ml/min/1.73 sqM); Potassium 4.4 mmol/L (3.5-5.1); Sodium 137 mmol/L (137-145); Total Bilirubin 0.4 mg/dL (0.2-1.3); Total Protein 7.5 g/dL (6.3-8.2)
[2023-08-03] MEDS ORDERED: NITROGLYCERIN SL TABS 0.4 MG TAB SUBLINGUAL PRN (16:05)
[2023-08-03] MEDS ORDERED: busPIRone HCl 5 MG TAB PO PRN (18:41)
[2023-08-03] MEDS ORDERED: DEXTROSE 50% SYRINGE 50 ML IVP PRN ×2 (18:42)
[2023-08-03 20:14] LABS: Glucose,Whole Blood 135 mg/dL (70-110)
[2023-08-03] MEDS: INSULIN ASPART (NovoLOG) 100 UNIT/ML VIAL SQ SCH (20:28)
[2023-08-03] MEDS: NITROGLYCERIN OINT 1 INCH/GM PACKET TOPICAL SCH (21:17)
[2023-08-04] MEDS: NITROGLYCERIN OINT 1 INCH/GM PACKET TOPICAL SCH (01:39)
[2023-08-04 05:51] LABS: Glucose,Whole Blood 148 mg/dL (70-110)
[2023-08-04] MEDS: INSULIN ASPART (NovoLOG) 100 UNIT/ML VIAL SQ SCH ×2 (05:57→13:35)
[2023-08-04] MEDS ORDERED: ASPIRIN 325 MG TAB PO SCH (09:00)
[2023-08-04] MEDS ORDERED: TAMSULOSIN 0.4 MG CAP.ER.24H PO SCH (09:00)
[2023-08-04] MEDS ORDERED: lisinopriL 20 MG TAB PO SCH (09:00)
[2023-08-04] MEDS ORDERED: ASPIRIN 81 MG PO SCH (09:00)
[2023-08-04] MEDS ORDERED: ATORVASTATIN 20 MG TAB PO SCH (09:00)
[2023-08-04 09:37] LABS: LDL Cholesterol,Calculated 38.2 mg/dL (0.0-131.0)
[2023-08-04 09:47] VITALS: BP 131/78; PULSE 72; RESP 16; TEMP 97.5
--- NOTE | 2023-08-04 10:54 | P.CRDCN ---
History of Present Illness History of present illness: HISTORY OF PRESENT ILLNESS: This is a 48-year-old male with a past medical history significant for hypertension, hyperlipidemia, diabetes, and nicotine dependence. Patient follows in the office with Dr. Whalen. We have been asked to see the patient in consultation for chest pain. Patient examined at the bedside. Patient states yesterday morning he was feeling unwell. He reports having a fever and nausea. He states he went to urgent care and his blood pressure was found to be elevated with a systolic in the 160s. It was recommended that he come to the hospital for further evaluation. The patient declined and went home instead. He states later in the day he bent over to play with his dog and started to have chest pain. At that time he decided to come to the hospital for further evaluation. Patient's blood pressures have been stable since admission. * EKG reveals sinus mechanism with no signs of acute ischemia * Chest xray negative for acute process * Current home cardiac medications include lisinopril 20 mg daily, rosuvastatin 10 mg daily * Patient underwent stress testing in the office on 06/27/2023 which was negative for ischemia REVIEW OF SYSTEMS: At the time of my exam: CONSTITUTIONAL: Denies fever or chills. HEENT: Denies blurred vision, vision changes, or eye pain. Denies hemoptysis CARDIOVASCULAR: Denies chest pain. Denies orthopnea. Denies PND. Denies palpitations RESPIRATORY: Denies shortness of breath. GASTROINTESTINAL: Denies abdominal pain. Denies nausea or vomiting. HEMATOLOGIC: Denies bleeding disorders. GENITOURINARY: Denies any blood in urine. SKIN: Denies pruitis. Denies rash. PHYSICAL EXAM: VITAL SIGNS: Reviewed. GENERAL: Well-developed in no acute distress. HEENT: Head is normocephalic. Pupils are equal, round. Sclerae anicteric. Mucous membranes of the mouth are moist. Neck supple. No JVD or thyromegaly LUNGS: Respirations even and unlabored. Lungs essentially clear to auscultation bilaterally. HEART: Regular rate and rhythm. S1 and S2 heard. ABDOMEN: Soft. Nondistended. Nontender. EXTREMITIES: Normal range of motion. No clubbing or cyanosis. Peripheral pulses intact. No lower extremity edema NEUROLOGIC: Awake and alert. Oriented x 3. ASSESSMENT: Nausea and fever Chest pain, atypical, troponin negative 3 Hypertension Hyperlipidemia Diabetes Nicotine dependence PLAN: An acute coronary event has been ruled out Resume home cardiac medications No further inpatient recommendations from a cardiac standpoint We will sign off. Please reconsult if needed. Nurse practitioner note has been reviewed by physician. Signing provider agrees with the documented findings, assessment, and plan of care. Past Medical History Past Medical History: Diabetes Mellitus, Hypertension, Musculoskeletal Disorder Additional Past Medical History / Comment(s): Neck pain R/T bulging discs, Rt arm NT History of Any Multi-Drug Resistant Organisms: None Reported Past Surgical History: Hernia Repair, Orthopedic Surgery Additional Past Surgical History / Comment(s): splenectomy. left knee scoped x 3. eye surgery at 5 yrs old. 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 Alcohol 1/2 pint daily Past Drug Use History: None Reported Additional Drug Use History / Comment(s): daily - Past Family History Mother Family Medical History: No Reported History Medications and Allergies Home Medications Medication Instructions Recorded Confirmed Type lisinopriL [Zestril] 20 mg PO DAILY 01/08/20 08/03/23 History Rosuvastatin Calcium [Crestor] 10 mg PO DAILY 10/09/20 08/03/23 History Dulaglutide [Trulicity] 1.5 mg SQ TH 08/03/23 08/03/23 History Ibuprofen [Motrin] 800 mg PO Q8H PRN 08/03/23 08/03/23 History Tamsulosin [Flomax] 0.4 mg PO DAILY 08/03/23 08/03/23 History busPIRone HCl [Buspar] 5 mg PO BID PRN 08/03/23 08/03/23 History Allergies Allergy/AdvReac Type Severity Reaction Status Date / Time No Known Allergies Allergy Verified 08/03/23 15:42 Physical Exam Vitals: Vital Signs Temp Pulse Pulse Resp BP BP Pulse Ox 08/04/23 02:33 98.6 F 65 17 118/68 97 08/03/23 21:23 97.5 F L 81 15 122/83 96 08/03/23 20:00 86 16 128/80 96 08/03/23 18:00 75 17 126/86 96 08/03/23 17:00 77 18 144/92 95 08/03/23 15:41 81 17 138/87 96 08/03/23 14:39 97.7 F 89 16 160/96 97 Intake and Output 08/03/23 08/04/23 08/04/23 22:59 06:59 14:59 Output Total 0 Balance 0 Output: Emesis 0 Other: # Voids 1 Weight 99.79 kg Results 08/03/23 14:50 08/03/23 14:50 Cardiac Enzymes 08/03/23 08/03/23 08/03/23 Range/Units 14:50 14:50 16:55 AST 41 (17-59) U/L Troponin I <0.012 <0.012 (0.000-0.034) ng/mL 08/04/23 Range/Units 04:34 AST (17-59) U/L Troponin I <0.012 (0.000-0.034) ng/mL Coagulation 08/03/23 Range/Units 14:50 PT 9.7 (9.0-12.0) sec APTT 23.7 (22.0-30.0) sec CBC 08/03/23 Range/Units 14:50 WBC 12.6 H (3.8-10.6) k/uL RBC 4.70 (4.30-5.90) m/uL Hgb 15.0 (13.0-17.5) gm/dL Hct 44.8 (39.0-53.0) % Plt Count 224 (150-450) k/uL Comprehensive Metabolic Panel 08/03/23 Range/Units 14:50 Sodium 137 (137-145) mmol/L Potassium 4.4 (3.5-5.1) mmol/L Chloride 100 (98-107) mmol/L Carbon Dioxide 25 (22-30) mmol/L BUN 20 (9-20) mg/dL Creatinine 0.72 (0.66-1.25) mg/dL Glucose 165 H (74-99) mg/dL Calcium 9.9 (8.4-10.2) mg/dL AST 41 (17-59) U/L ALT 39 (4-49) U/L Alkaline Phosphatase 137 H (38-126) U/L Total Protein 7.5 (6.3-8.2) g/dL Albumin 4.6 (3.5-5.0) g/dL Current Medications Generic Name Dose Route Start Last Admin Trade Name Iesha PRN Reason Stop Dose Admin Atorvastatin Calcium 20 mg 08/04/23 09:00 Atorvastatin 20 Mg Tab PO DAILY CINDY Buspirone HCl 5 mg 08/03/23 18:41 Buspirone Hcl 5 Mg Tab PO BID PRN Anxiety Dextrose/Water 25 ml 08/03/23 18:42 Dextrose 50% Syringe 50 Ml IVP PER PROTOCOL PRN Hypoglycemia Protocol Dextrose/Water 50 ml 08/03/23 18:42 Dextrose 50% Syringe 50 Ml IVP PER PROTOCOL PRN Hypoglycemia Protocol Insulin Aspart 0 unit 08/03/23 21:00 08/04/23 05:57 Insulin Aspart (Novolog) 100 Unit/Ml Vial SQ Not Given ACHS CINDY Protocol Lisinopril 20 mg 08/04/23 09:00 Lisinopril 20 Mg Tab PO DAILY CINDY Nitroglycerin 0.4 mg 08/03/23 16:05 Nitroglycerin Sl Tabs 0.4 Mg Tab SUBLINGUAL Q5M PRN Chest Pain Tamsulosin HCl 0.4 mg 08/04/23 09:00 Tamsulosin 0.4 Mg Cap.Er.24h PO DAILY CINDY Intake and Output 08/03/23 08/04/23 08/04/23 22:59 06:59 14:59 Output Total 0 Balance 0 Output: Emesis 0 Other: # Voids 1 Weight 99.79 kg 08/03/23 14:50 08/03/23 14:50
[2023-08-04 12:16] LABS: Glucose,Whole Blood 172 mg/dL (70-110)
[2023-08-04] MEDS ORDERED: ACETAMINOPHEN TAB 325 MG TAB PO PRN (12:57)
--- NOTE | 2023-08-04 13:29 | P.HPIM ---
History of Present Illness please consider this is combined H&P and discharge summary This is a pleasant 48 years old male with past medical history of Diabetes Mellitus, Hypertension, Neck pain patient was not feeling well over the last few days, yesterday he had fever at home with sweating but he did not check it . He went to urgent care,suspect viral infection and they checked Covid test which was negative as per patient. After that he was at home playing with his dog when he felt chest pain in the middle of the chest and he decided to come to the hospital.Patient's was admitted with a diagnosis of chest pain to be evaluated by manager plan. Cardiology team already evaluated the patient and ACS has been ruled out and actually cardiology cleared her for discharge today and they signed off the case Patient currently reports only mild pain in the middle of the chest about 1-2/10 in severity . Most likely mild musculoskeletal painpatient feels fatigued and tired but no specific symptoms. He denies dysuria urgency. No abdominal pain or vomiting. He had diarrhea 2 days ago but bowel movement back to normal today he had some headache after he starts using nitroglycerin which is discontinued now. Tylenol was given for headache which is controlled. He denies No other new complaints. Patient smokes about half to 1 pack per day and he was counseled to quit and he is agreeable but he declines the nicotine patch. He drinks about 3-4 days per week and he was advised to cut down Vitals stable Labs showed mild leukocytosis of 12.6, rest of CBC, BMP and liver enzymes are unremarkable. Troponin 3 are negative less than 0.012. D-dimer is negative at 0.36 EKG showing normal sinus rhythm at [address]-T changes Chest x-ray: No acute process. Review of Systems Review of systems CONSTITUTIONAL: No fever, no malaise, no fatigue. HEENT: No recent visual problems or hearing problems. Denied any sore throat. CARDIOVASCULAR: No orthopnea, PND, no palpitations, no syncope. PULMONARY: No shortness of breath, no cough, no hemoptysis. GASTROINTESTINAL: No diarrhea, no nausea, no vomiting, no abdominal pain. Normoactive bowel sounds. NEUROLOGICAL: No headaches, no weakness, no numbness. HEMATOLOGICAL: Denies any bleeding or petechiae. GENITOURINARY: Denies any burning micturition, frequency, or urgency. MUSCULOSKELETAL/RHEUMATOLOGICAL: Denies any joint pain, swelling, or any muscle pain. ENDOCRINE: Denies any polyuria or polydipsia. Past Medical History Past Medical History: Diabetes Mellitus, Hypertension, Musculoskeletal Disorder Additional Past Medical History / Comment(s): Neck pain R/T bulging discs, Rt arm NT History of Any Multi-Drug Resistant Organisms: None Reported Past Surgical History: Hernia Repair, Orthopedic Surgery Additional Past Surgical History / Comment(s): splenectomy. left knee scoped x 3. eye surgery at 5 yrs old. 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 Alcohol 1/2 pint daily Past Drug Use History: None Reported Additional Drug Use History / Comment(s): daily - Past Family History Mother Family Medical History: No Reported History Medications and Allergies Home Medications Medication Instructions Recorded Confirmed Type lisinopriL [Zestril] 20 mg PO DAILY 01/08/20 08/03/23 History Rosuvastatin Calcium [Crestor] 10 mg PO DAILY 10/09/20 08/03/23 History Dulaglutide [Trulicity] 1.5 mg SQ TH 08/03/23 08/03/23 History Ibuprofen [Motrin] 800 mg PO Q8H PRN 08/03/23 08/03/23 History Tamsulosin [Flomax] 0.4 mg PO DAILY 08/03/23 08/03/23 History busPIRone HCl [Buspar] 5 mg PO BID PRN 08/03/23 08/03/23 History Acetaminophen Tab [Tylenol] 650 mg PO Q6HR PRN tab 08/04/23 Rx Allergies Allergy/AdvReac Type Severity Reaction Status Date / Time No Known Allergies Allergy Verified 08/03/23 15:42 Physical Exam Vitals: Vital Signs Temp Pulse Pulse Resp BP BP Pulse Ox 08/04/23 02:33 98.6 F 65 17 118/68 97 08/03/23 21:23 97.5 F L 81 15 122/83 96 08/03/23 20:00 86 16 128/80 96 08/03/23 18:00 75 17 126/86 96 08/03/23 17:00 77 18 144/92 95 08/03/23 15:41 81 17 138/87 96 08/03/23 14:39 97.7 F 89 16 160/96 97 Intake and Output 08/03/23 08/04/23 08/04/23 22:59 06:59 14:59 Output Total 0 Balance 0 Output: Emesis 0 Other: # Voids 1 Weight 99.79 kg GENERAL: The patient is alert and oriented x3, not in any acute distress. Well developed, well nourished. HEENT: Pupils are round and equally reacting to light. EOMI. No scleral icterus. No conjunctival pallor. Normocephalic, atraumatic. No pharyngeal erythema. No thyromegaly. CARDIOVASCULAR: S1 and S2 present. No murmurs, rubs, or gallops. PULMONARY: Chest is clear to auscultation, no wheezing , no crackles. ABDOMEN: Soft, nontender, nondistended, normoactive bowel sounds. No palpable organomegaly. MUSCULOSKELETAL: No joint swelling or deformity. EXTREMITIES: No cyanosis, clubbing, or pedal edema. NEUROLOGICAL: Gross neurological examination did not reveal any focal deficits. SKIN: No rashes. no petechiae. Results CBC & Chem 7: 08/03/23 14:50 08/03/23 14:50 Labs: Abnormal Lab Results - Last 24 Hours (Table) 08/03/23 08/03/23 08/03/23 Range/Units 14:50 14:50 20:12 WBC 12.6 H (3.8-10.6) k/uL Glucose 165 H (74-99) mg/dL POC Glucose (mg/dL) 135 H (70-110) mg/dL Alkaline Phosphatase 137 H (38-126) U/L 08/04/23 Range/Units 05:49 WBC (3.8-10.6) k/uL Glucose (74-99) mg/dL POC Glucose (mg/dL) 148 H (70-110) mg/dL Alkaline Phosphatase (38-126) U/L Thrombosis Risk Factor Assmnt - Choose All That Apply Each Factor Represents 1 point: Age 41-60 years, Obesity (BMI >25) Thrombosis Risk Factor Assessment Total Risk Factor Score: 2 Thrombosis Risk Factor Assessment Level: Low Risk Assessment and Plan Assessment: Chest pain, rule out cardiac causes. D-dimer is negative at 0.36associated with mild tenderness Diabetes mellitus, uncontrolled with hemoglobin A1c of 7.9% and hyperglycemia. Present on admission Nicotine dependence he was counseled to quit and he is agreeable Hypertension Degenerative disc disease and chronic neck pain Plan: manager plan cleared the patient and they signed off. D-dimer is negative and most likely is musculoskeletal with some tenderness in the chest wall Viral infection is suspected with mild diarrhea fatigue mild temporal fever with sweating which is resolving now. I offered for the patient to keep monitor him in the hospital but he wants to go home and rest, besides family including and daughter at bedside and they going help patient and monitor him while at home I talked to him about uncontrolled diabetes, he does not want metformin because of GI upset. Because of his current viral illness I prefer to wait on increasing his diabetes medication to decrease the chances of hypoglycemia. Risks and benefits are explained for him extensively and the importance of control diabetes. He verbalized understanding and acceptance. Problems and management plan were discussed with the patient and he verbalized understanding and acceptance Patient was found stable and can be discharged home in guarded prognosis however he needs follow-up as an outpatient. Patient was instructed to follow up with PCP Dr. Knott within one week and patient agrees patient was instructed to follow up with production painter annika nunes to follow-up in 1-2 weeks Time spent more than 35 minutes
== END 2023-08-04 14:45 | disposition home or self-care (01) ==
LOC: EC 14:38 → 6NMEDSUR 16:05
PROVIDERS: ADMIT Internal Medicine; ATTEND Internal Medicine
DX: R07.89 Other chest pain (principal); R11.0 Nausea; R50.9 Fever, unspecified; E11.65 Type 2 diabetes mellitus with hyperglycemia; I10 Essential (primary) hypertension; F41.9 Anxiety disorder, unspecified; E78.5 Hyperlipidemia, unspecified; G89.29 Other chronic pain; M54.2 Cervicalgia; F17.200 Nicotine dependence, unspecified, uncomplicated; Z20.822 Contact with and (suspected) exposure to COVID-19; Z90.81 Acquired absence of spleen; Z79.85 Long-term (current) use of injectable non-insulin antidiabetic drugs; Z79.899 Other long term (current) drug therapy
CPT/HCPCS: 96372; 99285; 36415; 93005; 85379; 80061; 80053; 84484 ×2; 85025; 85610; 85730; 83036; 87635; 71046; G0378 ×2

== ENCOUNTER → 2024-10-31 | Outpatient (CLI) | payer OTHER ==
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
== END | disposition home or self-care (01) ==
LOC: RADMRIMAIN 07:30
PROVIDERS: ATTEND Internal Medicine Geriatric Medicine
DX: S06.0XAD Concussion with loss of consciousness status unknown, subsequent encounter (principal); R26.2 Difficulty in walking, not elsewhere classified; V89.2XXA Person injured in unspecified motor-vehicle accident, traffic, initial encounter
CPT/HCPCS: 70551

== ENCOUNTER 2025-04-07 08:30 | Emergency (ER) | payer OTHER ==
[2025-04-07 08:37] VITALS: RESP 18; TEMP 97.6
[2025-04-07] MEDS: IBUPROFEN 800 MG TAB PO STA (08:53)
[2025-04-07] MEDS: AMOXIC-POT CLAV 875-125MG 1 EACH TAB PO STA (08:54)
[2025-04-07] MEDS: ACETAMINOPHEN TAB 500 MG TAB PO STA (08:55)
--- NOTE | 2025-04-07 08:55 | ED ---
Animal Bite HPI - General Chief Complaint: Animal Bite Stated Complaint: Dog bite right hand Time Seen by Provider: 04/07/25 08:37 Source: patient, RN notes reviewed Mode of arrival: ambulatory Limitations: no limitations - History of Present Illness Initial Comments: This is a 49-year-old male who presents to the emergency department for a dog bite to his right hand. States that his own dog, a King Mansoor, bit him last night over some food, causing several puncture early in the right hand. Most of the pain is over the right index finger, which he states is difficult to move. The dog is up-to-date on its vaccinations and the patient is also up-to-date on his tetanus vaccine. Bleeding is controlled, however states that it is painful. MD Complaint: animal bite - Related Data Home Medications Medication Instructions Recorded Confirmed lisinopriL [Zestril] 20 mg PO DAILY 01/08/20 08/03/23 Rosuvastatin Calcium [Crestor] 10 mg PO DAILY 10/09/20 08/03/23 Dulaglutide [Trulicity] 1.5 mg SQ TH 08/03/23 08/03/23 Ibuprofen [Motrin] 800 mg PO Q8H PRN 08/03/23 08/03/23 Tamsulosin [Flomax] 0.4 mg PO DAILY 08/03/23 08/03/23 busPIRone HCl [Buspar] 5 mg PO BID PRN 08/03/23 08/03/23 Previous Rx's Medication Instructions Recorded Acetaminophen Tab [Tylenol] 650 mg PO Q6HR PRN tab 08/04/23 Amoxic-Pot Clav 875-125Mg 1 tab PO Q12HR 10 Days #20 tab 04/07/25 [Augmentin 875-125] Ibuprofen [Motrin] 800 mg PO Q8H PRN #30 tab 04/07/25 Allergies Allergy/AdvReac Type Severity Reaction Status Date / Time No Known Allergies Allergy Verified 04/07/25 08:37 Review of Systems ROS Statement: Those systems with pertinent positive or pertinent negative responses have been documented in the HPI. ROS Other: All systems not noted in ROS Statement are negative. Past Medical History Past Medical History: Diabetes Mellitus, Hypertension, Musculoskeletal Disorder Additional Past Medical History / Comment(s): Neck pain R/T bulging discs, Rt arm NT History of Any Multi-Drug Resistant Organisms: None Reported Past Surgical History: Hernia Repair, Orthopedic Surgery Additional Past Surgical History / Comment(s): splenectomy. left knee scoped x 3. eye surgery at 5 yrs old. 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 Absent: respiratory distress, wheezes, rales, rhonchi, stridor Cardiovascular Exam: Present: regular rate, normal rhythm Extremities exam: Present: other (Scattered puncture wounds to the right hand with mild swelling. No erythema, warmth, or active bleeding. Full range of motion of all 5 digits.) Neurological exam: Present: alert, oriented X3, CN II-XII intact Psychiatric exam: Present: normal affect, normal mood Course Vital Signs 04/07/25 04/07/25 08:34 09:47 Temperature 97.6 F Pulse Rate 96 94 Respiratory 18 18 Rate Blood Pressure 140/97 139/86 O2 Sat by Pulse 94 L 95 Oximetry Medical Decision Making - Medical Decision Making This is a 49-year-old male who presents to the emergency department for a dog bite to the right hand. Was pt. sent in by a medical professional or institution? @ -No Did you speak to anyone other than the patient for history? @ -No Did you review nursing and triage notes? @ -Yes, and I agree, it is accurate with regards to the patient's symptoms. Were old charts reviewed? @ -No Differential Diagnosis? @ -Differential Musculoskeletal Muscular strain, contusion, ligament sprain, fracture, arthritis, septic arthritis, bursitis, cellulitis, muscle spasm, nerve compression, DVT, arterial occlusion, herpes zoster, electrolyte abnormality, tumor.... This is not meant to be in all inclusive list EKG interpreted by me (3pts min.)? @ -Not obtained X-rays interpreted by me (1pt min.)? @ -X-ray of the right hand obtained. My interpretation identifies no acute fractures. CT interpreted by me (1pt min.)? @ -Not obtained U/S interpreted by me (1pt. min.)? @ -Not obtained What testing was considered but not performed? (CT, X-rays, U/S, labs)? Why? @ -None What meds were considered but not given? Why? @ -None Did you discuss the management of the patient with other professionals? @ -No Did you reconcile home meds? @ -No Was smoking cessation discussed for >3mins.? @ -I discussed smoking cessation for greater than 3 minutes. The risk of smoking were discussed with the patient including but not limited to risks of cancer, stroke, coronary artery disease and COPD. Also discussed with patient were multiple methods of quitting smoking. Lastly we discussed the financial cost of smoking. Was critical care preformed (if so, how long)? @ -No Were there social determinants of health that impacted care today? How? (Homelessness, low income, unemployed, alcoholism, drug addiction, transportation, low edu. Level, literacy, decrease access to med. care, skilled nursing, rehab)? @ -No Was there de-escalation of care discussed even if they declined? (Discuss DNR or withdrawal of care, Hospice)? @ -No What co-morbidities impacted this encounter? (DM, HTN, Smoking, COPD, CAD, Cancer, CVA, Hep., AIDS, mental health diagnosis, sleep apnea, morbid obesity)? @ -DM, smoking Was patient admitted / discharged? @ -Discharged. X-ray of the right hand obtained revealing no acute process. The hand was soaked in water to cleanse the wounds. None of the wounds required repair. His tetanus vaccine is already up-to-date and his dog is also up-to-date on its rabies vaccines. Prescription for Augmentin and ibuprofen provided with dosing instructions reviewed. Strict return parameters discussed with regards to infection. Advised follow-up with his PCP for reevaluation. Patient discharged home in stable condition. Case discussed with ED attending Dr. Bryant. Return precautions reviewed in depth, the patient is instructed to return to the emergency department with any new, worsening, or concerning symptoms. Patient verbalized understanding. Undiagnosed new problem with uncertain prognosis? @ -None Drug Therapy requiring intensive monitoring for toxicity (Heparin, Nitro, Insulin, Cardizem)? @ -None Were any procedures done? @ -None Diagnosis/symptom? @ -Dog bite to right hand Acute, or Chronic, or Acute on Chronic? @ -Acute Uncomplicated (without systemic symptoms) or Complicated (systemic symptoms)? @ -Uncomplicated Side effects of treatment? @ -None Exacerbation, Progression, or Severe Exacerbation] @ -Not applicable Poses a threat to life or bodily function? @ -No - Radiology Data Radiology results: report reviewed, image reviewed Disposition Clinical Impression: Dog bite, Nicotine dependence Disposition: HOME SELF-CARE Instructions (If sedation given, give patient instructions): Animal Bite (ED) Additional Instructions: Return to the emergency department with any new, worsening, or concerning symp toms. Take the antibiotic as prescribed for 10 days. Alternate with ibuprofen and Tylenol as needed for pain relief. You can also ice the hand to help with pain and swelling. Follow up with your primary care provider in 1-2 days. Prescriptions: Amoxic-Pot Clav 875-125Mg [Augmentin 875-125] 1 tab PO Q12HR 10 Days #20 tab Ibuprofen [Motrin] 800 mg PO Q8H PRN #30 tab PRN Reason: Pain Is patient prescribed a controlled substance at d/c from ED?: No Referrals: Terence Knott MD [Primary Care Provider] - 1-2 days Time of Disposition: 09:39
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
[2025-04-07 09:49] VITALS: BP 139/86; PULSE 94
== END 2025-04-07 09:49 | disposition home or self-care (01) ==
LOC: EC 08:30
DX: S61.451A Open bite of right hand, initial encounter (principal); E11.9 Type 2 diabetes mellitus without complications; F17.200 Nicotine dependence, unspecified, uncomplicated; W54.0XXA Bitten by dog, initial encounter
CPT/HCPCS: 99283